=== PATIENT | male | born 1995 | race Caucasian/White ===

== ENCOUNTER 2016-04-07 10:59 | Emergency (ER) | payer SELFPAY ==
[~2016-04-07] VITALS: Ht 182.9 cm; Wt 72.7 kg
[2016-04-07 11:01] VITALS: BP 115/54; PULSE 70; RESP 15; TEMP 98.2; O2SAT 98
--- NOTE | 2016-04-07 13:29 | PD ---
HPI Chief Complaint: Headache Time Seen by Provider: 13:16 Travel History International Travel<30 days: No Contact w/Intl Traveler<30days: No Traveled to known affect area: No History of Present Illness HPI 20-year-old male complains of headache. Patient states that headache started 2 days ago. Patient states the headache is throbbing headache diffuse over the head. Patient denies any visual change. Patient denies any nausea vomiting. Patient denies any neck pain. Patient denies any fever chills. Patient denies any coughing congestion. Patient denies any focal weakness and numbness of extremity. Patient denies any recent head injury. PFS Social History Alcohol Use: No Tobacco Use: No Substance Use: No Allergies-Medications (Allergen,Severity, Reaction): Coded Allergies: No Known Allergies (Unverified , 07/17/14) Reported Meds & Prescriptions Reported Meds & Active Scripts Active No Active Prescriptions or Reported Medications Review of Systems General / Constitutional: No: Fever Eyes: No: Visual changes HENT: Positive: Headaches Cardiovascular: No: Chest Pain or Discomfort Respiratory: No: Shortness of Breath Gastrointestinal: No: Abdominal Pain Genitourinary: No: Dysuria Musculoskeletal: No: Pain Skin: No Rash Neurologic: No: Weakness Psychiatric: No: Depression Endocrine: No: Polydipsia Hematologic/Lymphatic: No: Easy Bruising Physical Exam Narrative GENERAL: Well-nourished, well-developed patient. SKIN: Warm and dry. HEAD: Normocephalic. EYES: No scleral icterus. No injection or drainage. Post 3 mm equal reactive. NECK: Supple, trachea midline. No JVD or lymphadenopathy. No meningismus CARDIOVASCULAR: Regular rate and rhythm without murmurs, gallops, or rubs. RESPIRATORY: Breath sounds equal bilaterally. No accessory muscle use. GASTROINTESTINAL: Abdomen soft, non-tender, nondistended. MUSCULOSKELETAL: No cyanosis, or edema. BACK: Nontender without obvious deformity. No CVA tenderness. Neurologic exam normal. Data Data Last Documented VS Vital Signs Date Time Temp Pulse Resp B/P Pulse Ox O2 Delivery O2 Flow Rate FiO2 04/07/16 11:01 98.2 70 15 115/[address] Brain W/O Iv Contrast(Rout) (04/07/16 13:22) [facility] Medical Decision Making Medical Screen Exam Complete: Yes Emergency Medical Condition: Yes Interpretation(s) Last Impressions Head CT 1/20/17 1322 Signed Impressions: Service Date/Time: Thursday, April 07, 2016 13:51 - CONCLUSION: 1. No evidence of acute intracranial pathology. No masses are identified. Jhonatan Pastrana MD Differential Diagnosis Differential diagnosis including tension headache, cluster headache, migraine headache. Narrative Course 20-year-old male with headache. Diagnosis Primary Impression: Cephalgia Qualified Code: R51 - Acute nonintractable headache, unspecified headache type Patient Instructions: General Instructions Additional Instructions: Take medications as needed for headache. Follow-up with personal physician and neurologist. Return if persistent problem or worse. Med/Other Pt SpecificInfo: Prescription(s) given Scripts Tramadol (Ultram)50 Mg Tab50 Mg PO Q6H PRN (PAIN) #20 TAB Prov:Raoul Poole MD 04/07/16 Meloxicam (Mobic)15 Mg Tab15 Mg PO DAILY #20 TAB Prov:Raoul Poole MD 04/07/16 Disposition: 01 DISCHARGE HOME Condition: Stable Raoul Poole MD Apr 07, 2016 13:29
--- NOTE | 2016-04-07 14:31 | RADRPT ---
EXAM DATE/TIME: 04/07/2016 13:51 [facility] COMPARISON: No previous studies available for comparison. INDICATIONS : Cephalgia. RADIATION DOSE: 56.77 CTDIvol (mGy) MEDICAL HISTORY : None SURGICAL HISTORY : None. ENCOUNTER: Initial ACUITY: 3 days PAIN SCALE: 3/10 LOCATION: cranial TECHNIQUE: Multiple contiguous axial images were obtained of the head. Using automated exposure control and adj ustment of the mA and/or kV according to patient size, radiation dose was kept as low as reasonably a chievable to obtain optimal diagnostic quality images. FINDINGS: CEREBRUM: The ventricles are normal for age. No evidence of midline shift, mass lesion, hemorrhage or acute in farction. No extra-axial fluid collections are seen. POSTERIOR FOSSA: The cerebellum and brainstem are intact. The 4th ventricle is midline. The cerebellopontine angle i s unremarkable. EXTRACRANIAL: The visualized portion of the orbits is intact. There is benign-appearing mucosal disease in the righ t maxillary sinus. SKULL: The calvaria is intact. No evidence of skull fracture. CONCLUSION: 1. No evidence of acute intracranial pathology. No masses are identified. Jhonatan Pastrana MD on April 07, 2016 at 14:29 Board Certified Radiologist. This report was verified electronically.
[2016-04-07] MEDS ORDERED: ULTR50TA5 PO (14:56)
[2016-04-07] MEDS ORDERED: MOBI15TA PO (14:56)
== END 2016-04-07 15:13 | disposition home or self-care (01) ==
LOC: NEPD 10:59
DX: R51 Headache (principal)
CPT/HCPCS: 70450